=== PATIENT | female | born 1980 | race Caucasian/White ===

== ENCOUNTER → 2016-10-12 | Outpatient (REF) ==
[~2016-10-12] MED LIST: PRENATAL1 TA1 PO
== END ==
LOC: WSOH 15:00
DX: Z02.89 Encounter for other administrative examinations (principal)

== ENCOUNTER → 2016-11-22 | Outpatient (REF) | LOC: WSOH 16:30 | DX: Z02.89 Encounter for other administrative examinations (principal) ==

== ENCOUNTER → 2018-01-11 | Outpatient (REF) | LOC: WSPT 10:41 | DX: Z02.1 Encounter for pre-employment examination (principal) ==

== ENCOUNTER 2019-08-16 14:55 | Emergency (ER) | payer BC ==
[~2019-08-16] VITALS: Ht 172.7 cm; Wt 57.3 kg
[2019-08-16 15:02] VITALS: BP 117/66; TEMP 98.3
[2019-08-16] MEDS ORDERED: CAROSPIR25 MG/5 ML PO (15:51)
[2019-08-16] MEDS ORDERED: ALDACTONE50 MG PO (15:51)
[2019-08-16 16:10] VITALS: PULSE 62
== END 2019-08-16 16:12 | disposition home or self-care (01) ==
LOC: COL.ER 14:55
DX: S61.213A Laceration without foreign body of left middle finger without damage to nail, initial encounter (principal); W29.8XXA Contact with other powered hand tools and household machinery, initial encounter; Y92.009 Unspecified place in unspecified non-institutional (private) residence as the place of occurrence of the external cause